=== PATIENT | male | born 1970 | race Two or more races ===

== ENCOUNTER 2019-10-20 15:59 | Emergency (ER) | payer OTHER ==
[~2019-10-20] VITALS: Ht 167.6 cm; Wt 86.2 kg
[2019-10-20 16:32] VITALS: BP 141/94
[2019-10-20] MEDS ORDERED: Methocarbamol 500mg tab ORAL ONE (16:45)
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
[2019-10-20 18:42] VITALS: BP 137/92
[2019-10-20] MEDS ORDERED: ROBAXIN-750750 MG PO (19:10)
[2019-10-20] MEDS ORDERED: TYLENOL EXTRA500 MG ORAL (19:10)
[2019-10-20 19:15] VITALS: BP 137/92
== END 2019-10-20 19:16 | disposition home or self-care (01) ==
LOC: EMR 16:30
DX: S00.93XA Contusion of unspecified part of head, initial encounter (principal); S16.1XXA Strain of muscle, fascia and tendon at neck level, initial encounter; V43.52XA Car driver injured in collision with other type car in traffic accident, initial encounter; Y92.411 Interstate highway as the place of occurrence of the external cause
CPT/HCPCS: 70450; 70486; 72125; 99284